=== PATIENT | male | born 1975 | race Caucasian/White ===

== ENCOUNTER 2017-01-14 00:13 | Emergency (ER) | payer OTHER ==
[~2017-01-14] VITALS: Ht 170.2 cm; Wt 63.5 kg
[2017-01-14] MEDS ORDERED: TRUVADA 200 MG1 EAC1 ORAL (00:20)
--- NOTE | 2017-01-14 00:37 | Emergency Room Report ---
History of Present Illness General Chief Complaint: Male Urogenital Problems Source: Patient Present Illness [facility] This is a 41-year-old male with no past medical history. He presents with chief complaint of hematuria for the last to 3 days. No fever or chills. Said the urine is cloudy has an older. He has one episode vomiting 3 days ago after the flight from the [facility]. Never had this problem before. Allergies: Coded Allergies: No Known Allergies (Unverified , 01/14/17) Patient History Past Medical History: none, see triage record, old chart reviewed Past Surgical History: none Pertinent Family History: none Social History: Denies: smoking Immunizations: other Reviewed Nursing Documentation: PMH: Agreed, PSxH: Agreed Nursing Documentation-PMH Past Medical History: No Stated History Review of Systems Eye: Denies: blurred vision, eye pain ENT: Denies: ear pain, nose congestion, throat swelling Respiratory: Denies: cough, shortness of breath Cardiovascular: Denies: chest pain, palpitations Gastrointestinal: Denies: abdominal pain, diarrhea, nausea, vomiting Genitourinary: Reports: hematuria Musculoskeletal: Denies: back pain, joint pain Skin: Denies: rash Neurological: Denies: headache, numbness Endocrine: Denies: increased thirst, increased urine Hematologic/Lymphatic: Denies: easy bruising All Other Systems: negative except mentioned in HPI Physical Exam Vital Signs Date Time Temp Pulse Resp B/P Pulse Ox O2 Delivery O2 Flow Rate FiO2 01/14/17 00:16 97.9 54 18 135/79 99 Room Air vitals normal Sp02 EP Interpretation: reviewed, normal General Appearance: well appearing, no apparent distress, alert Head: normocephalic, atraumatic Eyes: bilateral eye EOMI, bilateral eye PERRL ENT: hearing grossly normal, normal pharynx Neck: full range of motion, supple, no meningismus Respiratory: chest non-tender, lungs clear, normal breath sounds Cardiovascular #1: regular rate, rhythm, no murmur Gastrointestinal: normal bowel sounds, non tender, no mass, no organomegaly, no bruit, non-distended Musculoskeletal: back normal, gait/station normal, normal range of motion Psychiatric: mood/affect normal Skin: warm/dry Medical Decision Making Diagnostic Impression: Primary Impression: UTI (urinary tract infection) Qualified Codes: N30.01 - Acute cystitis with hematuria ER Course Patient presents with a hemorrhagic cystitis. No evidence of kidney stone. No evidence of pyelonephritis. We'll discharge home. He will recheck after antibiotics. If still with hematuria, would need urology consult for cystoscopy. This is to rule out neoplastic process. Last Vital Signs Date Time Temp Pulse Resp B/P Pulse Ox O2 Delivery O2 Flow Rate FiO2 01/14/17 00:16 97.9 54 18 135/79 99 Room Air Status: improved Disposition: HOME, SELF-CARE Condition: Stable Scripts Cephalexin* (KEFLEX*) 500 Mg Capsule 500 MG ORAL TID, #21 CAP 0 Refills Prov: MICHELLE JACOB M.D. 01/14/17 Patient Instructions: Urinary Tract Infection Additional Instructions: Increase fluids. Followup with your Dr. in 7 days. Return for increasing pain , fever, chills, or any concern. You'll need a repeat urine check after antibiotics. If there is still blood in your urine, you will be referred to see a urologist. MICHELLE JACOB M.D. Jan 14, 2017 00:37
[2017-01-14 00:43] LABS: KETONES,URINE NEGATIVE (NEGATIVE); LEUKOCYTE ESTERASE ,URINE 3+ (NEGATIVE); NITRITE,URINE POSITIVE (NEGATIVE); PH,URINE 6 (4.5-8.0); PROTEIN,URINE 3+ (NEGATIVE); UROBILINOGEN,URINE NORMAL MG/DL (0.0-1.0)
[2017-01-14 00:45] LABS: APPEARANCE,URINE CLOUDY
[2017-01-14 00:52] LABS: BACTERIA,URINE MANY /HPF; RBC,URINE 40-60 /HPF (0 - 0); WBC,URINE TNTC /HPF (0 - 0)
[2017-01-14] MEDS ORDERED: Cephalexin 500mg cap ORAL ONE (01:00)
[2017-01-14] MEDS ORDERED: KEFLEX500 MG ORAL (01:05)
[2017-01-14 01:10] VITALS: BP 136/76
== END 2017-01-14 01:10 | disposition home or self-care (01) ==
LOC: EMR 00:38
DX: N39.0 Urinary tract infection, site not specified (principal); R31.9 Hematuria, unspecified
CPT/HCPCS: 81003; 87086; 87181; 99283

== ENCOUNTER 2017-01-27 12:31 | Emergency (ER) | payer OTHER ==
[~2017-01-27] VITALS: Ht 170.2 cm; Wt 64.4 kg
[~2017-01-27 12:31] MED LIST: KEFLEX500 MG ORAL; TRUVADA 200 MG1 EAC1 ORAL
[2017-01-27 12:44] VITALS: BP 168/93
--- NOTE | 2017-01-27 12:53 | Emergency Room Report ---
History of Present Illness General Chief Complaint: Male Urogenital Problems Source: Patient Present Illness HPI 41 YO male presents to the ED c/o dysuria and cloudy urine x 2 weeks. pt. was recently treated for UTI with Keflex. pt. states his symptoms improved, then came back. pt. denies hematuria at this time, denies discharge or external lesions. pt. reports chills, denies fevers pt. states he did have unprotected intercourse prior to onset of initial infection. Pt. denies personal or familial hx of cx or prostate disorders.Denies testicular pain or swelling. Denies abdominal pain, joint pain, CP, Palpitations, LOC, AMS, dizziness, Changes in Vision, Sensation, paresthesias, or a sudden severe headache. Allergies: Coded Allergies: No Known Allergies (Unverified , 01/14/17) Patient History Past Medical History: see triage record Past Surgical History: none Pertinent Family History: none Reviewed Nursing Documentation: PMH: Agreed, PSxH: Agreed Nursing Documentation-PMH Past Medical History: No Stated History Review of Systems All Other Systems: negative except mentioned in HPI Physical Exam Vital Signs Date Time Temp Pulse Resp B/P Pulse Ox O2 Delivery O2 Flow Rate FiO2 01/27/17 12:39 98.1 99 20 168/93 100 Room Air Sp02 EP Interpretation: reviewed, normal General Appearance: no apparent distress, alert, GCS 15, non-toxic Head: normocephalic, atraumatic Eyes: bilateral eye PERRL, bilateral eye normal inspection ENT: hearing grossly normal, normal pharynx, no angioedema, normal voice Neck: full range of motion, supple/symm/no masses Respiratory: lungs clear, normal breath sounds, speaking full sentences Cardiovascular #1: regular rate, rhythm, no edema Gastrointestinal: normal bowel sounds, non tender, soft, no guarding, no rebound Rectal: deferred Genitourinary: normal inspection, no CVA tenderness, deferred - pt declines exam as dysuria is his only symptoms, no d/c, testicular symptoms or lesions. Musculoskeletal: back normal, gait/station normal, normal range of motion, non- tender Neurologic: alert, oriented x3, responsive, motor strength/tone normal, sensory intact, speech normal Psychiatric: judgement/insight normal, memory normal, mood/affect normal Skin: normal color, no rash, warm/dry, well hydrated Lymphatic: no adenopathy Medical Decision Making PA Attestation Dr. Workman is my supervising Physician whom patient management has been discussed with. Diagnostic Impression: Primary Impression: Urethritis ER Course 41 YO male presents to the ED c/o dysuria and cloudy urine x 2 weeks. pt. was recently treated for UTI with Keflex. pt. states his symptoms improved, then came back. pt. denies hematuria at this time, denies discharge or external lesions. pt. reports chills, denies fevers pt. states he did have unprotected intercourse prior to onset of initial infection. Pt. denies personal or familial hx of cx or prostate disorders.Denies testicular pain or swelling. Denies abdominal pain, joint pain, CP, Palpitations, LOC, AMS, dizziness, Changes in Vision, Sensation, paresthesias, or a sudden severe headache. Ddx considered but are not limited to UTi , Pyelo, STI, Stone,cystitis, Prostatitis Vital signs: are WNL, pt. is afebrile H&PE are most consistent with UTI ORDERS: - UA labs are attached: few bacteria noted with elevated WBC's , leukocytes, and RBC's --- compared to previous UA results that were positive for nitrites and had moderate bacteria which was identified as E.coli , I suspect continued infection due to symptoms and elevated wbc's and leukocytes. d/w pt. that I will be sending his urine for G & C culture, and that I believe he would benefit from empirical treatment. ED INTERVENTIONS: -Rocephin IM. -d/w pt to follow up with PCP to make sure infection has resolved, d/w pt. urology consult if after infection is cleared and he continues to have rbc's in the urine. DISCHARGE: At this time pt. is stable for d/c to home. Will provide printed patient care instructions, and any necessary prescriptions. Care plan and follow up instructions have been discussed with the patient prior to discharge. Labs Test 01/27/17 12:43 Urine Color Yellow Urine Appearance Slightly cloudy Urine pH 6 (4.5-8.0) Urine Specific [place] 1.020 (1.005-1.035) Urine Protein 2+ (NEGATIVE) Urine Glucose (UA) Negative (NEGATIVE) Urine Ketones Negative (NEGATIVE) Urine Occult Blood 2+ (NEGATIVE) Urine Nitrite Negative (NEGATIVE) Urine Bilirubin Negative (NEGATIVE) Urine Urobilinogen 1 MG/DL (0.0-1.0) Urine Leukocyte Esterase 3+ (NEGATIVE) Urine RBC 5-10 /HPF (0 - 0) Urine WBC 60-80 /HPF (0 - 0) Urine Squamous Epithelial Cells Occasional /LPF Urine Bacteria Few /HPF (NONE) Last Vital Signs Date Time Temp Pulse Resp B/P Pulse Ox O2 Delivery O2 Flow Rate FiO2 01/27/17 12:44 98.1 99 20 168/93 100 Room Air Disposition: HOME, SELF-CARE Condition: Stable Scripts Doxycycline Hyclate* (VIBRAMYCIN*) 100 Mg Capsule 100 MG ORAL EVERY 12 HOURS for 7 Days, #14 CAP 0 Refills Prov: Viky Do 01/27/17 Patient Instructions: Urethritis, Adult Additional Instructions: Take medications as directed. Follow up with PCP in 3-5 days Return sooner to ED if new symptoms occur, or current symptoms become worse. - Please note that this Emergency Department Report was dictated using [employer] quoting operator technology software, occasionally this can lead to erroneous entry secondary to interpretation by the dictation equipment. Viky Do Jan 27, 2017 12:53
[2017-01-27 13:04] LABS: APPEARANCE,URINE SLIGHTLY CLOUDY; KETONES,URINE NEGATIVE (NEGATIVE); LEUKOCYTE ESTERASE ,URINE 3+ (NEGATIVE); NITRITE,URINE NEGATIVE (NEGATIVE); PH,URINE 6 (4.5-8.0); PROTEIN,URINE 2+ (NEGATIVE); UROBILINOGEN,URINE 1 MG/DL (0.0-1.0)
[2017-01-27 13:12] LABS: BACTERIA,URINE FEW /HPF; SQUAMOUS EPITHELIAL CELL,UR OCCASIONAL /LPF (NONE/OCC); WBC,URINE 60-80 /HPF (0 - 0)
[2017-01-27] MEDS ORDERED: Lidocaine 1% MPF 10mg/ml 5ml ONE (13:49)
[2017-01-27 13:54] VITALS: BP 154/87
[2017-01-27] MEDS ORDERED: VIBRAMYCIN100 MG ORAL (14:02)
[2017-01-27 14:03] VITALS: BP 154/87
== END 2017-01-27 14:07 | disposition home or self-care (01) ==
LOC: EMR 13:40
DX: N34.2 Other urethritis (principal); B96.20 Unspecified Escherichia coli [E. coli] as the cause of diseases classified elsewhere
CPT/HCPCS: 81003; 87086; 87181; 87491; 87590; 96372; 99283; J0696